=== PATIENT | female | born 1960 | race Caucasian/White ===

== ENCOUNTER 2019-03-09 18:33 | Emergency (ER) ==
--- NOTE | 2019-03-09 19:25 | NUR ---
CALLED IN [facility], NO ANSWER.
--- NOTE | 2019-03-09 19:51 | NUR ---
CALLED IN WAITING ROOM, NO ANSWER.
--- NOTE | 2019-03-09 20:24 | NUR ---
CALLED IN [facility], NO ANSWER.
== END 2019-03-09 20:24 | disposition left against medical advice (07) ==
LOC: ER 18:33
DX: Z53.21 Procedure and treatment not carried out due to patient leaving prior to being seen by health care provider (principal)